=== PATIENT | male | born 2000 | race Caucasian/White ===

== ENCOUNTER 2024-12-26 09:59 | Outpatient (AMB) | payer OTHER, SELFPAY ==
--- NOTE | 2024-12-26 10:08 | A.OFFPC_ITS ---
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 Required: No Allergies No Known Allergies Allergy (Verified 12/26/24 10:49) Medication List - Last Reconciled 12/26/24 by JON Granados- No Known Home Meds Tobacco use date assessed: 12/26/24 Dental Screening Dental Screen Date: 12/26/24 Did you have a dental visit in the last 12 months?: Yes Did you have a dental problem in the last 6 months where you did not have access to dental care?: No Was dental information given to patient?: Patient has dentist HPI HPI Comments History of Present Illness Details 24 y/o M family hx of melanoma, Fhx: Dad melanoma; Mom alive and well; 1 sister alive; PGM alive and well; PGF after sepsis; MGF [place] ; MGM w/ dementia. 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 - New patient, no records, previous pcp [facility] - Reports family history of melanoma, pr imarily in his father who had it twice. - No chronic conditions, current medicat ions, or medical allergies. - c/o ear wax build up bilat - Denied any significant medical or surg ical history. Past Surgical History - No surgical history. 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[employer] [facility] - Lives with parents and reports feeling safe at home - Reports being a non-smoker and no subs tance use - Drives and wears a seatbelt consistent ly - Describes himself as a 'cautious perso n' and performs self-exams for testicular health - Engaged in a healthy lifestyle, presum ably active given occupation Health Maintenance - Regular skin checks due to family hist ory of melanoma; plans to schedule an appointment soon - Discussed the importance of regular we llness exams and screenings - Plan to initiate screening labs for ch olesterol and diabetes at his [facility] - Informed about patient portal for comm unication and results Review of Systems - General: Denies weight loss, fatigue, fever - Skin: Regular skin checks due to famil y history of melanoma; plans to schedule soon - Eyes: Reports no need for corrective l enses; good vision - Ears/Nose/Throat: Reports earwax build up history; no current issues - Respiratory: Denies cough, shortness o f breath - Cardiovascular: Denies chest pain, pal pitations - Gastrointestinal: Denies abdominal yamile n, changes in bowel habits - Genitourinary: Reports being sexually active without concerns - Musculoskeletal: Reports tight hamstri ngs but no pain or functional limitations - Neurological: Denies headaches, dizzin ess - Psychiatric: Denies anxiety, depressio n - Endocrine: Denies symptoms suggestive of endocrine disorders - Hematologic/Lymphatic: Denies bleeding tendencies - Allergic/Immunologic: Localized reacti on to bee stings Physical Exam General: Well developed, well nourished, in no acute distress. Appears stated age. Head: Normocephalic, atraumatic. Eyes: Pupils are equal, round and reactive to light and accommodation. Conjunctivae are clear. Vision grossly normal. Ears: Right ear has a small amount of ear wax; left ear is clear. Plan to flush right ear. Nose: Patent, without discharge. Neck: Supple, no adenopathy or thyromegaly. No pain or tenderness noted. Breast: Edu on SBE Lungs: Clear to auscultation bilaterally. No rales, rhonchi or wheeze noted. Good air flow in all cornejo. Heart: Regular rate and rhythm. No murmurs, click, rubs or gallops are noted. Abdomen: Bowel sounds present in all quadrants. The abdomen is soft, nontender, with no masses or organomegaly noted. No hernias are noted. : Deferred. Reviewed EDWINA & recommendations Pulses: Peripheral pulses are equal and palpable bilaterally. Extremities: No clubbing, cyanosis nor edema is noted. Neurologic: Gait and station normal. Cranial Nerves 2-12 intact. Motor strength grossly symmetrical and intact. No sensory loss. Balance normal. Skin: No rashes, ulcers, or lesions noted. Turgor is good. Skin color is good. Hair and nails are without abnormalities. Psych: Normal eye contact, affect and mood appropriate, and normal interactions. Patient is alert and appropriate to context. Mood screenings for depression and anxiety were negative. Results Pending Discussion Notes During the patient's visit, we discussed his intention to establish care and review his overall wellness. The patient reported no current health issues and disclosed a family history of melanoma, specifically in his father. We agreed on the importance of regular skin checks. He has no chronic medical conditions, allergies, or medications. We also talked about the need for standard screening labs for cholesterol and diabetes at his convenience, where he can come in for labs without fasting. We discussed the portal system as a primary communication method for receiving results and care updates. The patient consented to earwax removal, R ear. We confirmed the necessity of self-performed testicular exams, and I provided guidance on what to look for. He was reminded to schedule his next wellness exam in one year. Assessment and Plan 1. Establish Care/Wellness Exam - Discussed melanoma risk. - No chronic conditions. - Plan for routine screening labs. 2. Earwax Buildup - Clean earwax today. - Plan for ongoing ear health. 3. Preventive Health Measures - Continue testicular self-exams. - Emphasized healthy lifestyle and safet y. Patient Instructions - Continue with regular skin check-ups a nd book the next appointment soon. - Follow instructions to perform self-te sticular exams regularly. - Schedule annual wellness exams and com plete screening labs when convenient. - Utilize the patient portal for communi cation and lab results. - Have earwax cleaned today before lecasey ng. - RTO 1 year CPE Consent. Patient was informed and verbally consented to the use of an ambient scribe for clinic note documentation during this visit. [facility] Medical History (Updated 12/26/24 @ 11:06 by ESTRELLITA Granados) No pertinent past medical history Surgical History (Updated 12/26/24 @ 10:23 by Moses Pro MA) No pertinent past surgical history Family History (Updated 12/26/24 @ 10:23 by Moses Pro MA) Father Melanoma Social History (Updated 12/26/24 @ 10:21 by Moses Pro MA) Household Members: Family Both parents involved: Yes Caregiver staying overnight: No Housing: House Are you a primary director of home care hospice to a significant other at home: No Do you presently have visiting nurse or other home services: No 75 years or older and lives alone: No Alcohol intake: current Alcohol intake frequency: a few times a month Alcohol type: beer Patient Tobacco Use Status: Never used Tobacco e-Cigarette/Vaping Use: Never Used Second Hand Smoke Exposure: No Use of substances other than those prescribed or required for medical reasons: Yes Substance Use Type: Marijuana service: No Current occupational status: employed 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 1. Little interest or pleasure in doing things: not at all 2. Feeling down, depressed, or hopeless: not at all 3. Trouble falling or staying asleep, or sleeping too much: not at all 4. Feeling tired or having little energy: not at all 5. Poor appetite or overeating: not at all 6. Feeling bad about yourself - or that you are a failure or have let yourself or your family down: not at all 7. Trouble concentrating on things, such as reading the newspaper or watching television: not at all 8. Moving or speaking so slowly that other people could have noticed. Or the opposite - being so fidgety or restless that you have been moving around a lot more than usual: not at all 9. Thoughts that you would be better off or of hurting yourself in some way: not at all Total score: 0 Depression Screening Interpretation: Negative Depression Screening Done: Yes 66828 - PHQ-9 Billing: Yes Source: Developed by Drs. Anthony New, Payton Green, Nilesh Carrillo and colleagues, with an educational wood from [employer]. Thrive Questionnaire Date Thrive assessed: 12/26/24 I am a: Patient What is your living situation today?: I have a steady place to live Within the past 12 months, did the food you bought not last and you didn't have the money to get more?: Never true Within the past 12 months, did you worry whether your food would run out before you got money to buy more?: Never true Do you have trouble paying for medicines?: No Do you have trouble getting transportation to medical appointments?: No Do you have trouble paying your heating and electricity bill?: No Do you have trouble taking care of your child, family member or friend?: No Do you have trouble with day-to-day activities such as bathing, preparing meals, shopping, managing finances, etc.?: No Are you currently unemployed and looking for a job?: No Are you interested in more education?: No Please select the resources that you would like help with: None Currently or been in a relationship where the following occur: No concerns reported THRIVE Score: 0 AUDIT C Alcohol Use Questionnaire (AUDIT-C) 1. How often do you have a drink containing alcohol?: 2-3 times a week 2. How many drinks containing alcohol do you have on a typical day when you are drinking?: 1 or 2 3. How often do you have six or more drinks on one occasion?: Less than monthly Total Score: 4 Score Reviewed/Action Taken: Yes JAYLEN-7 AMB Questionnaire JAYLEN-7 Date JAYLEN - 7 assessed: 12/26/24 Feeling nervous, anxious, or on edge: 0 = Not at all Not being able to stop or control worryin = Not at all Worrying too much about different things: 0 = Not at all Trouble relaxin = Not at all Being so restless that it is hard to sit still: 0 = Not at all Becoming easily annoyed or irritable: 0 = Not at all Feeling afraid as if something awful might happen: 0 = Not at all Total JAYLEN-7 score (0-4 normal; 5-9 mild; 10-14 moderate; 15-21 severe): 0 Source: Developed by Drs. Anthony New, Payton Green, Nilesh Carrillo and colleagues, with an educational wood from [employer]. JAYLEN-7 Assessment Billing JAYLEN-7 Assessment Tool: JAYLEN-7 Assessment 79632 Physical exam (Primary Care) Vital Signs: Last Vital Signs Temp 97.6 F 12/26/24 10:13 Pulse 64 12/26/24 10:13 Resp 12 12/26/24 10:13 BP 118/70 12/26/24 10:13 Pulse Ox 99 12/26/24 10:13 Oxygen Delivery Method Room Air 12/26/24 10:13 BMI result Body Mass Index 21.9 Tobacco/Smoking Status: Tobacco use Status Tobacco use date assessed 12/26/24 12/26/24 10:12 Patient Tobacco Use Status Never used Tobacco 12/26/24 10:21 e-Cigarette/Vaping Use Never Used 12/26/24 10:21 PHQ-9: PHQ-9 Score PHQ-9: Total score 0 12/26/24 10:12 Depression Screening Interpretation: Negative Thrive Assessment: Date of Thrive Assessment Date Thrive assessed 12/26/24 12/26/24 10:12 Currently or been in a relationship where the following occur: No concerns reported Office Procedures Cerumen Removal From which ear canal was the cerumen removed: right Removal: irrigation Notes: patient tolerated procedure well, no complications and ear canal clear 35399-Xul Irrigation/Lavage Immunizations Boostrix Tdap 2.5 Lf unit-8 mcg-5 Lf/0.5 mL intramuscular syringe Performing Provider: ESTRELLITA Granados Performing Location: [facility] Administered by: Moses Pro MA on 12/26/24 10:19 Dose Route Admin Location Dispensed Lot Number Expiration Date [facility] Lead Work[employer] 0.5 mL IM Right Deltoid 0.5 mL [id number] 03/21/27 [id number] Scout VIS Given Date VIS Provided VIS Publication Date 12/26/24 Single Vaccine 21 Eligibility Eligibility Date Funding Source Not [facility] Eligible 12/26/24 Private Coding Level of Care Code New Pt Prev Care 18-39yr(27930 Diagnoses Encounter for general adult medical examination without abnormal findings Z00.00 Need for Tdap vaccination Z23 Encounter to establish care Z76.89 Laboratory exam ordered as part of routine general medical examination Z00.00 Family history of melanoma Z80.8 Right ear impacted cerumen H61.21 CPT Codes Office Procedure - CPT: 50152-Wiz Irrigation/Lavage ([id number]) Additional Codes JAYLEN-7 Assessment Billing - JAYLEN-7 Assessment Tool: JAYLEN-7 Assessment 48230 ([id number]) PHQ-9 - 86102 - PHQ-9 Billing: Yes ([id number]) Assessment & Plan Assessment & Plan (1) Encounter for general adult medical examination without abnormal findings: Onset Date: ~12/26/24 Code(s): Z00.00 - Encounter for general adult medical examination without abnormal findings Category: Medical (2) Need for Tdap vaccination: Code(s): Z23 - Encounter for immunization Category: Medical (3) Encounter to establish care: Code(s): Z76.89 - Persons encountering health services in other specified circumstances (4) Laboratory exam ordered as part of routine general medical examination: Code(s): Z00.00 - Encounter for general adult medical examination without abnormal findings Category: Medical (5) Family history of melanoma: Comment: dad Code(s): Z80.8 - Family history of malignant neoplasm of other organs or systems Category: Medical (6) Right ear impacted cerumen: Code(s): H61.21 - Impacted cerumen, right ear Plan . Orders: Orders TDaP Immunization Today Z23 - Encounter for immunization Hemoglobin A1c Today Z00.00 - Encounter for general adult medical examination without abnormal findings Vitamin B12 and Folate Today Z00.00 - Encounter for general adult medical examination without abnormal findings Comprehensive Met. Panel Today Z00.00 - Encounter for general adult medical examination without abnormal findings Lipid Panel Today Z00.00 - Encounter for general adult medical examination without abnormal findings TSH reflex Free T4 Today Z00.00 - Encounter for general adult medical examination without abnormal findings Microalbumin, Random (w Creat) Today Z00.00 - Encounter for general adult medical examination without abnormal findings Vitamin D 25-OH Total Today Z00.00 - Encounter for general adult medical examination without abnormal findings Patient Instructions: Walk-In Care (Urgent Care): We Make it Easy Walk-in for urgent medical issues such as: ? Seasonal Allergies ? Insect Bites ? Cough ? Diarrhea ? Acute Asthma Attacks ? Back, Knee or Joint Pain ? Ear Infection ? Fever without a Rash ? Headaches ? Nausea ? [facility], Rash or Skin Irritation ? Sore Throat ? Sports Physicals ? Vomiting Most insurances are accepted. Patients do not need to be part of the [facility] to seek care at the walk-in clinic. Locations [facility] , [place] [address] ? [phone] [facility] Walk-In Care in [place] provides services to ages 18 and over. Open Monday-Monday: 8 a.m. to 5 p.m. and Monday: 9 a.m. to 3 p.m.* *Hours may vary due to staffing availability. To confirm Walk-In Care hours in [place], please call [phone]. [address] [place] [address] ? [phone] [facility] Walk-In Care in [place] provides services to ages 12 and over. Open Monday-Monday: 8 a.m. to 5 p.m. Hours may vary due to staffing availability. To confirm Walk-In Care hours in [place], please call [phone]. LABORATORY SERVICES: [facility] ? Primary Location [address] [place] [address] Monday through Monday 6:00 AM ? 5:00 PM Monday 7:00 AM ? 11:00 AM* [phone] The [facility] is centrally located near the front entrance of the [facility] for easy outpatient access. Convenient parking is provided for outpatients. *Hours may vary due to staffing availability. To confirm Laboratory hours for any location, please call [phone]. Offsite Location For your convenience, we offer offsite laboratory draw stations at the following locations: [address] [place] [address] ? [address], [address] Monday through Monday 7:30 AM ? 1:00 PM* [phone] *Hours may vary due to staffing availability. To confirm Laboratory hours for any location, please call [phone]. [place] ? [address] Monday through Monday 6:00 AM ? 3:30 PM* Monday 6:30 AM ? 3 PM* [phone] *Hours may vary due to staffing availability. To confirm Laboratory hours for any location, please call [phone] [place] [address] Monday through Monday 7:30 AM ? 4:00 PM* [phone] *Hours may vary due to staffing availability. To confirm Laboratory hours for any location, please call [phone] [place] [address] Monday through 9:00 AM ? 4:00 PM* *Hours may vary due to staffing availability. To confirm Laboratory hours for any location, please call [phone]. Appointments are not necessary. Walk-ins are welcome. Like all the departments throughout the [facility], our Lab undergoes frequent reviews to ensure the quality and accuracy of test results, and our staff takes special pride in its status as a nationally accredited facility. Patient Portal: ONE PATIENT. ONE RECORD. BETTER CARE. [facility] has a fully integrated, cutting- edge mobile electronic health information system that has revolutionized the way we care for our patients and manage our organization. This system improves communication and coordination enabling us to provide safe, higher-quality care, and an overall positive experience for staff and patients. Our first priority, as always, is to deliver the highest quality care possible. The system is running in the background supporting that priority. This portal is for all [facility] services and practices. If you are experiencing any technical difficulties with enrolling or logging into the Patient Portal please complete the [facility] Patient Portal Technical Support Form. [facility] now offers a new secure on-line interactive tool for patients to review their health information ? ?Patient Portal. This interactive web portal will enable patients and their families to take an active role in their care by providing easy, secure access to their health information via the internet. The Patient Portal provides patients with instant access to their health information, including laboratory results, medications, allergies, demographic information, visit history, and more. In addition to managing their own care, parents and health care proxies with authorized consent will appreciate the ability to access the records of those individuals for whom they provide care. Please note: if you wish to gain access (Proxy) to another patient?s portal, you will be required to come to the Medical Records Department in person at [facility]. Both the patient giving proxy access and the proxy will need to provide photo identification and complete the appropriate authorization. The Patient Portal also allows track their appointments online. The [facility] Patient Portal also saves patients time by allowing them to submit updates to their demographic and contact information prior to their visits. Portal email notifications will also alert patients to any new activity on their portal, such as test results and new appointments. In order to initially enroll in the [facility] Patient Portal, you will need to enter some required information including the following: * your [facility] Medical Record number * your personal home email address * name * date of Please note: In order to enroll in the [facility] Portal, we need to have your email address on file in your electronic medical record. ?The email address needs to be specific for one person (yourself) in order for your Portal enrollment to be successful. ?You can update your email address in person with our Registration staff when you are registering for a hospital visit. ?Otherwise, you will need to come to the Health Information Management (Medical Records) Department at [facility]. ?We are open from Monday ? Monday from 7:30 a.m. ? 4:30 p.m. ?You will be required to present a photo id. Once you have successfully enrolled in the Patient Portal, you will receive a one-time user id and password for the Portal, sent to your email address. ?This will allow you to log into the Patient Portal within 99 hrs and reset your own logon id and password, and define personal security questions. ?Once your permanent login and password have been set, you can log into the [facility] Portal at any time via the blue button above or from the Portal Logon button on any page of the [facility] website. [facility] encourage all of our patients to enroll in Patient Portal as it presents a valuable opportunity for patients and their families to actively participate in their care and stay healthy Welcome to [facility]. ?We look forward to working with you. Health screenings for men You should visit your health care provider regularly, even if you feel healthy. The purpose of these visits is to: Screen for medical issues Assess your risk for future medical problems Encourage a healthy lifestyle Update vaccinations and other preventive care services Help you get to know your provider in case of an illness Information Even if you feel fine, you should still see your provider for regular checkups. These visits can help you avoid problems in the future. For example, the only way to find out if you have high blood pressure is to have it checked regularly. High blood sugar and high cholesterol level also may not have any symptoms in the early stages. Simple blood tests can check for these conditions. There are specific times when you should see your provider or receive specific health screenings. The [place] Preventive Services Task Force publishes a list of recommended screenings. Below are screening guidelines for men ages 40 to 64. BLOOD PRESSURE SCREENING Have your blood pressure checked at least once every year. Watch for blood pressure screenings in your area. Ask your provider if you can stop in to have your blood pressure checked. Ask your provider if you need your blood pressure checked more often if: You have diabetes, heart disease, kidney problems, or are overweight or have certain other health conditions You have a first-degree relative with high blood pressure You are Black Your blood pressure top number is from 120 to 129 mm Hg, or the bottom number is from 70 to 79 mm Hg If the top number is 130 mm Hg or greater or the bottom number is 80 mm Hg or greater, this is considered stage 1 hypertension. Schedule an appointment with your provider to learn how you can lower your blood pressure. Effects of age on blood pressure CHOLESTEROL SCREENING Cholesterol screening should begin at age 35 for men with no known risk factors for coronary heart disease. Repeat cholesterol screening should take place: Every 5 years for men with normal cholesterol levels More often if changes occur in lifestyle (including weight gain and diet) More often if you have diabetes, heart disease, kidney problems, or certain other conditions COLORECTAL CANCER SCREENING If you are under age 45, talk to your provider about getting screened. You may need to be screened if you have a strong family history of colon cancer or polyps. Screening may also be considered if you have risk factors such as a history of inflammatory bowel disease or polyps. If you are age 45 to 75, you should be screened for colorectal cancer. There are several screening tests available: A stool-based fecal occult blood (gFOBT) or fecal immunochemical test (FIT) every year A stool sDNA test every 1 to 3 years Flexible sigmoidoscopy every 5 years or every 10 years with stool testing FIT done every year CT colonography (virtual colonoscopy) every 5 years Colonoscopy every 10 years You may need a colonoscopy more often if you have risk factors for colorectal cancer, such as: Ulcerative colitis A personal or family history of colorectal cancer A history of growths in your colon called adenomatous polyps DENTAL EXAM Go to the dentist once or twice every year for an exam and cleaning. Your dentist will evaluate if you have a need for more frequent visits. DIABETES SCREENING All adults who do not have risk factors for diabetes should be screened starting at age 35 and repeated every 3 years. If you have other risk factors for diabetes, such as a first degree relative with diabetes, overweight or obesity, high blood pressure, prediabetes, or a history of heart disease, you may be tested more often. If you are overweight and have other risk factors, such as high blood pressure and are planning to become , screening is recommended. EYE EXAM Have an eye exam every 2 to 4 years ages 40 to 54 and every 1 to 3 years ages 55 to 64. Your provider may recommend more frequent eye exams if you have vision problems or glaucoma risk. Have an eye exam that includes an examination of your retina (back of your eye) at least every year if you have diabetes. IMMUNIZATIONS Commonly needed vaccines include: Flu shot: get one every year COVID-19 vaccine: ask your provider what is best for you Tetanus-diphtheria and acellular pertussis (Tdap) vaccine: have as one of your tetanus-diphtheria vaccines if you did not receive it as an adolescent Tetanus-diphtheria: have a booster (or Tdap) every 10 years Varicella vaccine: receive 2 doses if you never had chickenpox or the varicella vaccine and were born in 1979 or after Hepatitis B vaccine: receive 2, 3, or 4 doses, depending on your exact circumstances, if you did not receive these as a child or adolescent, until age 59 Shingles (herpes zoster) vaccine: at or after age 50 Ask your provider if you should receive other immunizations, especially if you have certain medical conditions, such as diabetes or are at increased risk for some diseases such as pneumonia. INFECTIOUS DISEASE SCREENING Screening for hepatitis C: all adults ages 18 to 79 should get a one-time test for hepatitis C. Screening for human immunodeficiency virus (HIV): all people ages 15 to 65 should get a one-time test for HIV. Depending on your lifestyle and medical history, you may need to be screened for infections such as syphilis, chlamydia, and other infections. LUNG CANCER SCREENING You should have an annual screening for lung cancer with low-dose computed tomography (LDCT) if: You are age 50 to 80 years AND You have a 20 pack-year smoking history AND You currently smoke or have quit within the past 15 years OSTEOPOROSIS SCREENING If you are age 50 to 64 and have risk factors for osteoporosis, you should discuss screening with your provider. Risk factors can include long-term steroid use, low body weight, smoking, heavy alcohol use, having a fracture after age 50, or a family history of hip fracture or osteoporosis. Osteoporosis PHYSICAL EXAM All adults should visit their provider from time to time, even if they are healthy. The purpose of these visits is to: Screen for diseases Assess risk of future medical problems Encourage a healthy lifestyle Update vaccinations and other preventive care services Maintain a relationship with a provider in case of an illness Your height, weight, and body mass index (BMI) should be checked at every exam. During your exam, your provider may ask you about: Depression and anxiety Diet and exercise Alcohol and tobacco use Safety, such as use of seat belts and smoke detectors Your medicines and risk for interactions PROSTATE CANCER SCREENING If you're 55 through 69 years old, before having the test, talk to your provider about the pros and cons of having a PSA test. Ask about: Whether screening decreases your chance of dying from prostate cancer. Whether there is any harm from prostate cancer screening, such as side effects from testing or overtreatment of cancer when discovered. Whether you have a higher risk of prostate cancer than others. If you are age 55 or younger, screening is not generally recommended. You should talk with your provider about if you have a higher risk for prostate cancer. Risk factors include: Having a family history of prostate cancer (especially a brother or father) Being If you choose to be tested, the PSA blood test is repeated over time (yearly or less often), though the best frequency is not known. Prostate examinations are no longer routinely done on men with no symptoms. Prostate cancer SKIN EXAM Your provider may check your skin for signs of skin cancer, especially if you're at high risk. People at high risk include those who have had skin cancer before, have close relatives with skin cancer, or have a weakened immune system. TESTICULAR EXAM The [place] Preventive Services Task Force (USPSTF) now recommends against performing testicular self-exams. Doing testicular self-exams has been shown to have little to no benefit. Earwax (Cerumen Impaction) Created in Ears Earwax, called cerumen, is produced by special wax-forming glands located in the skin of the outer one-third of the ear canal. It is normal to have cerumen in ear canal as this waxy substance serves as a self-cleaning agent with protective, lubricating, and antibacterial properties. The absence of earwax may result in dry, itchy ears. Self-cleaning means there is a slow and retail management keyholder movement of earwax and skin cells from the eardrum to the ear opening. Old earwax is constantly being transported, assisted by chewing and jaw motion, from the ear canal to the ear opening where, most of the time, it dries, flakes, and falls out. What Are the Symptoms of an Earwax Blockage? Symptoms of an earwax problem may include: Earache Feeling of plugged hearing or fullness in the ear Partial hearing loss that gets worse Tinnitus, ringing, or noises in the ear Itching, odor, or discharge Coughing Pain Infection What Causes Earwax Blockage? When a patient has wax blockage against the eardrum, it is often because they have been probing the ear with such things as cotton-tipped swabs, kaylan pins, or twisted napkin corners. These objects only push the wax in deeper in the ear canal. Why Is It Dangerous to Use Swabs to Remove Earwax? Wax blockage is one of the most common causes of hearing loss. This is often caused by attempts to clean the ear with cotton swabs. Most cleaning attempts merely push the wax deeper into the ear canal which is shaped like an hourglass, causing a blockage at the narrowing part of the ear canal. In addition, accidental trauma to the ear drum or ear bones can occur if the swab is pushed too deep. Good intentions to keep ears clean may lessen the ability to hear. The ear is a delicate and complicated body part, including the skin of the ear canal and the eardrum. Therefore, special care should be given to this part of the body. Discontinue the habit of inserting cotton-tipped swabs or other objects into the ear canals. What Are the Treatment Options? Cleaning a working ear can be done by washing it with a soft cloth, but do not insert anything into the ear. Ideally, the ear canals should never have to be cleaned. However, that isn?t always the case. The ears should be cleaned when enough earwax gathers to cause symptoms or to prevent a needed assessment of the ear by your doctor. This condition is call cerumen impaction. Most cases of ear wax blockage respond to home treatments used to soften wax. Patients can try placing a few drops of mineral oil, baby oil, glycerin, or commercial drops in the ear. Detergent drops such as hydrogen peroxide or carbamide peroxide (available in most pharmacies) may also aid in the removal of wax. Irrigation or ear syringing is commonly used for cleaning and can be performed by a physician or at home using a commercially available irrigation kit. Common solutions used for syringing include water and saline, which should be warmed to body temperature to prevent dizziness. Ear syringing is most effective when water, saline, or wax dissolving drops are put in the ear canal 15 to 30 minutes before treatment. Caution is advised to avoid having your ears irrigated if you have diabetes, a hole in the eardrum (perforation), tube in the eardrum, skin problems such as eczema in the ear canal or a weakened immune system. >> If you have been prescribed Debrox, use as directed for 5 nights and return to the office on Day 6 for an ear lavage to remove the wax<< Manual removal of earwax is also effective. This is most often performed by an ENT (ear, nose, and throat) specialist, or telephone ad taker, using suction or special miniature instruments, and a microscope to magnify the ear canal. Manual removal is preferred if your ear canal is narrow, the eardrum has a perforation or tube, other methods have failed, or if you have skin problems affecting the ear canal, diabetes or a weakened immune system. When Should I Talk to a Doctor? If home treatments do not help, or if wax has accumulated so much that it blocks your ear canal and your ability to hear, an ENT specialist may prescribe eardrops designed to soften wax, or they may wash or vacuum it out. Your ENT specialist may also need to remove the wax under microscopic visualization. If there is a possibility of a perforation in the eardrum, consult a physician prior to trying any [id number] remedies. Putting eardrops or other products in the ear with the presence of an eardrum perforation may cause pain or an infection. Washing water through such a hole could start an infection. If you are prone to repeated wax impaction or use hearing aids, consider seeing your doctor every six to 12 months for a checkup and routine preventive cleaning. What Questions Should I Ask My Doctor? What are the benefits and risks/side effects of different cerumen removal management options: earwax softening products, water irrigation vs. physical removal? Does cerumen accumulation vary with age, gender, familial or dietary intake? How do I manage swimming underwater with cerumen impaction? Should anything be done to the ears to prevent a buildup of earwax? How often should cerumen be removed from the ears? Are ear candles a safe option for removing earwax?
[2024-12-26 10:13] VITALS: BP 118/70; PULSE 64; RESP 12; TEMP 36.4; O2SAT 99; BMI 21.9
--- OUTSIDE RECORDS SUMMARY | 2024-12-26 11:30 | XMS_ITS | Encounter Summary ---
Author Organization [facility] [employer] [facility] Address [address] [place] [address] Care Team Providers Care Book Coverer Name Role Phone Rachel Miller Unassigned Primary Care Provider U navailable Encounter Details Date Type Department Care Team (Latest Contact Info) Description 07/07/2021 Abstract [facility] CONVERSIONS Dental, Provider, DDS Social History Tobacco Use Types Packs/Day Years Used Date Smoking Tobacco: Never Assessed Sex and Gender Information Value Date Recorded Sex Assigned at Male 08/17/2022 12:59 PM EST Legal Sex Male 5:37 PM EDT Gender Identity Male 08/17/2022 12:59 PM EST Sexual Orientation Choose not to disclose 2022 12:59 PM EST Sexual Orientation Straight 08/17/2022 12 :59 PM EST documented as of this encounter Plan of Treatment Not on file documented as of this encounter Visit Diagnoses Not on filedocumented in this encounter Care Teams Book Coverer Relationship Specialty Start Date End Date Rachel Miller Unassigned PCP - General Family Medicine 11/21/22 documented as of this encounter
== END 2024-12-26 11:20 | disposition home or self-care (01) ==
LOC: HO.HMCFM 10:00
PROVIDERS: PCP Nurse Practitioner Family; Visit Provider Nurse Practitioner Family
DX: Z00.00 Encounter for general adult medical examination without abnormal findings (principal); H61.21 Impacted cerumen, right ear; Z76.89 Persons encountering health services in other specified circumstances; Z23 Encounter for immunization; Z80.8 Family history of malignant neoplasm of other organs or systems

== ENCOUNTER → 2024-12-26 09:59 | Outpatient (BNVA) | payer OTHER, SELFPAY | PROVIDERS: PCP Nurse Practitioner Family; Visit Provider Nurse Practitioner Family | DX: Z00.00 Encounter for general adult medical examination without abnormal findings (principal); H61.21 Impacted cerumen, right ear; Z23 Encounter for immunization; Z80.8 Family history of malignant neoplasm of other organs or systems; Z76.89 Persons encountering health services in other specified circumstances | CPT/HCPCS: 69209; 90471; 90715; 96127 ==